=== PATIENT | male | born 1955 | race Caucasian/White ===

== ENCOUNTER 2017-11-03 21:27 | Emergency (ER) | payer MEDICARE, BC ==
[~2017-11-03] VITALS: Ht 172.7 cm; Wt 88.6 kg
[2017-11-03] MEDS ORDERED: MAGN250T29 PO (21:42)
[2017-11-03] MEDS ORDERED: FURO40 PO (21:42)
[2017-11-03] MEDS ORDERED: LEVE500T53 PO (21:42)
[2017-11-03] MEDS ORDERED: LACT10SO8 PO (21:42)
[2017-11-03] MEDS ORDERED: KDUR20 PO (21:42)
[2017-11-03] MEDS ORDERED: SPIR50 PO (21:42)
[2017-11-03] MEDS ORDERED: CALC600T12 PO (21:42)
[2017-11-03 22:29] LABS: BASOPHILS % (AUTO) 0.4 % (0.0-2.0); HEMATOCRIT 39.9 % (41-53); HEMOGLOBIN 13.9 g/dL (13.5-17.5); LYMPHOCYTES # (AUTO) 1.3 K/uL (1.0-4.8); LYMPHOCYTES % (AUTO) 25.3 % (22.0-44.0); MEAN CORPUSCULAR HEMOGLOBIN 35.5 pg (26.0-34.0); MEAN CORPUSCULAR HGB CONC 34.9 G/dL (31.0-37.0); MEAN CORPUSCULAR VOLUME 102 fL (80-100); MONOCYTES # (AUTO) 0.6 K/uL (0.1-1.0); MONOCYTES % (AUTO) 11.3 % (2.0-9.0); NEUTROPHILS # (AUTO) 3.1 K/uL (1.8-7.7); PLATELET COUNT (AUTO) 169 K/uL (150-450); RED BLOOD CELL COUNT(AUTO) 3.91 MIL/uL (4.50-5.90); RED CELL DISTRIBUTION WIDTH 13.7 % (11.5-14.5); WHITE BLOOD COUNT (AUTO) 5.1 K/uL (4.5-11.0)
[2017-11-03 22:43] LABS: ANION GAP 11 mmol/L (8-16); CALCIUM, TOTAL 9.3 mg/dL (8.8-10.5); CARBON DIOXIDE 24 mmol/L (22-29); CHLORIDE 99 mmol/L (98-107); CREATININE 0.92 mg/dL (0.60-1.30); GLOMERULAR FILTR. RATE CALC > 60 mL/min (>60); POTASSIUM 3.8 mmol/L (3.5-5.1); SODIUM SERUM 134 mmol/L (136-145); UREA NITROGEN, BLOOD 9 mg/dL (7-18)
[2017-11-03 22:47] LABS: ALANINE AMINOTRANSFERASE 30 U/L (12-78); ALBUMIN 3.1 g/dL (3.4-5.0); ASPARTATE AMINOTRANSFERASE 38 U/L (15-37); BILIRUBIN,TOTAL 1.5 mg/dL (0.1-1.0)
[2017-11-03 22:54] LABS: TROPONIN I < 0.02 ng/mL (0.00-0.05)
[2017-11-03 23:01] LABS: AMMONIA 55 umol/L (11-32)
[2017-11-03 23:10] LABS: RBC MORPHOLOGY COMMENT ABNORMAL RBC MORPH
[2017-11-03] MEDS ORDERED: LORazepam 2 MG/ML VIAL IVP ONE (23:45)
[2017-11-03] MEDS ORDERED: LevETIRAcetam 1,000 MG in DEXTROSE 5%-WATER 100 ML IV ONE (23:45)
[2017-11-04 03:30] VITALS: BP 104/68
== END 2017-11-04 04:51 | disposition home or self-care (01) ==
LOC: EMS 21:28
DX: G40.409 Other generalized epilepsy and epileptic syndromes, not intractable, without status epilepticus (principal)
CPT/HCPCS: 36415; 71010; 80053; 82140; 84484; 85025; 93005; 96374; 96375; 99285; G0480; J0712; J2060; J7060